=== PATIENT | female | born 1975 | race Caucasian/White ===

== ENCOUNTER 2017-09-16 11:30 | Emergency (ER) | END 2017-09-16 16:36 | disposition home or self-care (01) ==

== ENCOUNTER 2017-09-18 08:10 | Emergency (ER) | END 2017-09-18 12:23 | disposition home or self-care (01) ==

== ENCOUNTER 2017-09-29 07:58 | Emergency (ER) | END 2017-09-29 16:20 | disposition home or self-care (01) ==

== ENCOUNTER 2018-11-02 07:23 | Emergency (ER) | payer MEDICAID ==
[~2018-11-02] VITALS: Ht 167.6 cm; Wt 83.0 kg
[~2018-11-02 07:23] MED LIST: METR70GE15 VAG
[2018-11-02 07:28] VITALS: BP 129/68; PULSE 108; RESP 20; Ht 167.6 cm; Wt 83.0 kg
[2018-11-02] MEDS ORDERED: CEPH-443 PO (11:30)
[2018-11-02] MEDS ORDERED: ACET500C5 PO (11:30)
--- NOTE | 2018-11-02 11:56 | ERD ---
ER Documentation Chief Complaint Chief Complaint Complains of a vag bleed since today and HPI 43-year-old female presents to the ED complaining of vaginal spotting during . Patient is a A1. Patient states that she is approximately 3- 1/2 months . She states that yesterday she began to feel fevers with chills, along with a mild cough. She did not take any xxer-dlu-ctzgabt medications. Patient states she woke up this morning and after using the restroom noticed a small amount of blood in the toilet. She denies any other vaginal discharge, vaginal pain, continue vaginal bleeding, dysuria, flank pain, pelvic pain or hematuria. She denies any pertinent past medical history. No allergies to medications. She is only currently taking vitamins. ROS All systems reviewed and are negative except as per history of present illness. Medications Home Meds Active Scripts Acetaminophen* (Tylophen*) 500 Mg Capsule, 1 CAP PO Q6H PRN for PAIN AND OR ELEVATED TEMP, #20 CAP Prov:ALINE WILSON PA-C 11/02/18 Cephalexin* (Keflex*) 500 Mg Capsule, 500 MG PO QID for 7 Days, CAP Prov:ALINE WILSON PA-C 11/02/18 Metronidazole* (Metrogel* Vaginal) 0.75% -70 Gram Gel.w.appl, 1 APPFUL VAG BID for 7 Days, TUB Prov:ABRAM CARMICHAEL 09/16/17 Allergies Allergies: Coded Allergies: No Known Allergy (Unverified , 09/29/17) PMhx/Soc History of Surgery: No Anesthesia Reaction: No Hx Neurological Disorder: No Hx Respiratory Disorders: No Hx Cardiac Disorders: No Hx Psychiatric Problems: No Hx Miscellaneous Medical Probl: No Hx Alcohol Use: No Hx Substance Use: No Hx Tobacco Use: No Smoking Status: Never smoker FmHx Family History: No diabetes, No coronary disease Physical Exam Vitals Vital Signs Date Temp Pulse Resp B/P (MAP) Pulse Ox O2 O2 Flow FiO2 Time Delivery Rate 11/02/18 97.5 108 20 129/68 99 07:28 (88) Physical Exam Const: Ztu-mts-eqvxamxis, well-nourished. In no acute distress. Head: Atraumatic, normocephalic Eyes: Normal Conjunctiva without injection. No purulent discharge. ENT: Normal external ear, nose. Moist oropharynx without tonsillar exudates. Non-erythematous pharynx. Uvula midline. No drooling. No trismus. Neck: No cervical midline tenderness. Full range of motion. No meningismus. No cervical lymphadenopathy. No JVD. Resp: Clear to auscultation bilaterally. No wheezing, rhonchi, rales, or crackles. No accessory muscle use. No retractions. Cardio: Regular rate and rhythm. No murmurs, rubs or gallops. Abd: Soft, nontender, non distended. Normal bowel sounds. No palpable masses. No rebound tenderness. No guarding. Negative McBurney's point. Negative psoas sign. Negative obturator sign. Skin: No petechiae or rashes Back: No midline tenderness. No CVA tenderness. Ext: No cyanosis, or edema. Neur: Awake and alert. Normal gait. Normal coordination. Psych: Normal Mood and Affect Result Diagram: 11/02/18 0916 Results 24 hrs Laboratory Tests Test 11/02/18 09:16 White Blood Count 7.7 10^3/ul Red Blood Count 4.25 10^6/ul Hemoglobin 12.0 g/dl Hematocrit 36.3 % Mean Corpuscular Volume 85.4 fl Mean Corpuscular Hemoglobin 28.2 pg Mean Corpuscular Hemoglobin Concent 33.1 g/dl Red Cell Distribution Width 13.4 % Platelet Count 380 10^3/UL Mean Platelet Volume 10.0 fl Immature Granulocytes % 0.700 % Neutrophils % 65.4 % Lymphocytes % 23.6 % Monocytes % 8.5 % Eosinophils % 1.3 % Basophils % 0.5 % Nucleated Red Blood Cells % 0.0 /100WBC Immature Granulocytes # 0.050 10^3/ul Neutrophils # 5.0 10^3/ul Lymphocytes # 1.8 10^3/ul Monocytes # 0.7 10^3/ul Eosinophils # 0.1 10^3/ul Basophils # 0.0 10^3/ul Nucleated Red Blood Cells # 0.0 10^3/ul Urine Color YELLOW Urine Clarity CLOUDY Urine pH 7.0 Urine Specific [place] 1.012 Urine Ketones NEGATIVE mg/dL Urine Nitrite NEGATIVE mg/dL Urine Bilirubin NEGATIVE mg/dL Urine Urobilinogen NEGATIVE mg/dL Urine Leukocyte Esterase NEGATIVE Mane/ul Urine Microscopic RBC 1 /HPF Urine Microscopic WBC 10 /HPF Urine Squamous Epithelial Cells FEW /HPF Urine Amorphous Crystals FEW /HPF Urine Bacteria FEW /HPF Urine Hemoglobin 3+ mg/dL Urine Glucose NEGATIVE mg/dL Urine Total Protein NEGATIVE mg/dl Beta HCG, Quantitative 98000.0 mIU/ml Procedures/MDM This is an otherwise healthy 43-year-old female who presents to the ED complaining of vaginal spotting during . She is approximately 3-1/2 months . An ultrasound, beta-hCG, CBC, type and RH, UA was ordered to evaluate patient. CBC: No evidence of severe infection or anemia Urine: WBCs, positive leukocyte esterase - evidence of UTI Rh: O Positive No indication for Rhogam at this time. beta Hc Ultrasound: IMPRESSION: Single live intrauterine with an estimated gestational age of 13 weeks and 1 day, based on ultrasound measurements. SHERIDAN based on ultrasound measurements is 05/09/19. Patient's bleeding symptoms have stabilized while in the department. She will be discharged with prescription for Keflex and acetaminophen for urinary tract infection. Low suspicion for symptomatic pyelonephritis, anemia, ectopic , sepsis, PID, appendicitis, ovarian torsion, tubo-ovarian abscess, surgical abdomen, or other emergent conditions. Patient was educated that there is a risk for threatened . Patient to follow up with [facility] in 2 days for further evaluation and treatment repeat beta-hCG due to her vaginal spotting. Patient is to return sooner to the ED for any worsening symptoms. Patient's questions were answered. Patient understood and agreed with discharge plan. Departure Diagnosis: Primary Impression: Vaginal bleeding in patient at less than 20 weeks ges... Condition: Stable Patient Instructions: Urinary Tract Infections in Women, After Age 35, Bleeding During Early Referrals: [facility] YOU HAVE RECEIVED A MEDICAL SCREENING EXAM AND THE RESULTS INDICATE THAT YOU DO NOT HAVE A CONDITION THAT REQUIRES URGENT TREATMENT IN THE EMERGENCY DEPARTMENT. FURTHER EVALUATION AND TREATMENT OF YOUR CONDITION CAN WAIT UNTIL YOU ARE SEEN IN YOUR DOCTORS OFFICE WITHIN THE NEXT 1-2 DAYS. IT IS YOUR RESPONSIBILITY TO MAKE AN APPOINTMENT FOR FOLOW-UP CARE. IF YOU HAVE A PRIMARY DOCTOR --you should call your primary doctor and schedule an appointment IF YOU DO NOT HAVE A PRIMARY DOCTOR YOU CAN CALL OUR PHYSICIAN REFERRAL HOTLINE AT IF YOU CAN NOT AFFORD TO SEE A PHYSICIAN YOU CAN CHOSE FROM THE FOLLOWING [facility] CLINICS [facility] [address] [facility] [address] [facility] [address] [facility] [address] [facility] [phone] [facility]. [facility]. [address] [facility]. [facility] YOU HAVE RECEIVED A MEDICAL SCREENING EXAM AND THE RESULTS INDICATE THAT YOU DO NOT HAVE A CONDITION THAT REQUIRES URGENT TREATMENT IN THE EMERGENCY DEPARTMENT. FURTHER EVALUATION AND TREATMENT OF YOUR CONDITION CAN WAIT UNTIL YOU ARE SEEN IN YOUR DOCTORS OFFICE WITHIN THE NEXT 1-2 DAYS. IT IS YOUR RESPONSIBILITY TO MAKE AN APPOINTMENT FOR FOLOW-UP CARE. IF YOU HAVE A PRIMARY DOCTOR --you should call your primary doctor and schedule and appointment IF YOU DO NOT HAVE A PRIMARY DOCTOR YOU CAN CALL OUR PHYSICIAN REFERRAL HOTLINE AT . IF YOU CAN NOT AFFORD TO SEE A PHYSICIAN YOU CAN CHOSE FROM THE FOLLOWING [facility] IN[facility]IONS: [facility] [address] [place] [address] [facility] [address] [place] [address] [facility] [address] [place] [address] [facility] URGENT CARE/SPECIALTIES [employer] [place] [address] [facility] [address] [place], [place] [phone] OFFICE FAX JANNETH SCHWARTZ [address] [place], [place] [phone] [place] [address] [place], [place] [phone] ELLA CAZARES [address] [address] [address] [address] [place] [address] [facility] [address] [place], [place] [phone] [phone] [facility] [id number] - [address] CHRISTOPHER, RIK [address], [facility] [phone] ARREGUIN, PALLAVI [address] [address] [facility]. [address], [facility] [address] [address] HYDE, [place] [address] [place] [address] [facility] Hours: 8:00 am - 5:00 pm Additional Instructions: Llame al obstetrica doctor MAANA y no juliette DOMINIC PARA DENTRO DE 2-3 PALMER.Dgale a la secretaria que nosotros le instruimos hacer esta dominic.Avise o llame si arguelles condicin se empeora antes de la dominic. Regresa aqui si peor o no mejor. ALINE WILSON PA-C Nov 02, 2018 11:56
== END 2018-11-02 11:51 | disposition home or self-care (01) ==
LOC: FTE 07:23
DX: O20.9 Hemorrhage in early pregnancy, unspecified (principal); Z3A.13 13 weeks gestation of pregnancy
CPT/HCPCS: 36415; 76801; 81001; 84702; 85025; 86900; 86901; Z7502

== ENCOUNTER 2018-12-27 00:30 | Emergency (ER) | payer MEDICAID, OTHER ==
[~2018-12-27] VITALS: Ht 165.1 cm; Wt 83.8 kg
[~2018-12-27 00:30] MED LIST changes: +ACET500C5 PO; +CEPH-443 PO
[2018-12-27 00:33] VITALS: Ht 165.1 cm; Wt 83.8 kg
[2018-12-27] MEDS ORDERED: ONDANSETRON (ODT) 4 MG TAB ODT STA (01:34)
--- NOTE | 2018-12-27 01:40 | ERD ---
ER Documentation Chief Complaint Chief Complaint decayed tooth on right lower side; pain x 2 days HPI 43-year-old female, previously healthy, presents the emergency department, complaining of 2 days with worsening of right lower tooth pain. She denies fever, no chills, no difficulty swallowing, no difficulty breathing. No medications taken at this time for pain. ROS All systems reviewed and are negative except as per history of present illness. Medications Home Meds Active Scripts Hydrocodone/Acetaminophen ([place] 5-325 Tablet) 1 Each Tablet, 1 TAB PO TID PRN for PAIN, #12 TAB Prov:JULIO AL MD 12/27/18 Ibuprofen* (Motrin*) 600 Mg Tab, 600 MG PO TID PRN for PAIN AND OR ELEVATED TEMP, #30 TAB Prov:JULIO AL MD 12/27/18 Amoxicillin* (Amoxicillin*) 500 Mg Cap, 500 MG PO TID for 10 Days, CAP Prov:JULIO AL MD 12/27/18 Acetaminophen* (Tylophen*) 500 Mg Capsule, 1 CAP PO Q6H PRN for PAIN AND OR ELEVATED TEMP, #20 CAP Prov:ALINE WILSON PA-C 11/02/18 Cephalexin* (Keflex*) 500 Mg Capsule, 500 MG PO QID for 7 Days, CAP Prov:ALINE WILSON PA-C 11/02/18 Metronidazole* (Metrogel* Vaginal) 0.75% -70 Gram Gel.w.appl, 1 APPFUL VAG BID for 7 Days, TUB Prov:ABRAM CARMICHAEL 09/16/17 Allergies Allergies: Coded Allergies: No Known Allergy (Unverified , 09/29/17) PMhx/Soc Medical and Surgical Hx: pt denies Medical Hx, pt denies Surgical Hx History of Surgery: No Anesthesia Reaction: No Hx Neurological Disorder: No Hx Respiratory Disorders: No Hx Cardiac Disorders: No Hx Psychiatric Problems: No Hx Miscellaneous Medical Probl: No Hx Alcohol Use: No Hx Substance Use: No Hx Tobacco Use: No Smoking Status: Never smoker FmHx Family History: No diabetes, No coronary disease Physical Exam Vitals Vital Signs Date Temp Pulse Resp B/P (MAP) Pulse Ox O2 O2 Flow FiO2 Time Delivery Rate 12/27/18 98.6 98 22 140/80 98 00:33 (100) Physical Exam Const: No acute distress Head: Atraumatic Eyes: Normal Conjunctiva ENT: Poor oral dentition, multiple cavities, no evidence of abscess formation. Normal External Ears. Neck: Full range of motion. No meningismus. Resp: Clear to auscultation bilaterally Cardio: Regular rate and rhythm, no murmurs Abd: Soft, non tender, non distended. Normal bowel sounds Skin: No petechiae or rashes Back: No midline or flank tenderness Ext: No cyanosis, or edema Neur: Awake and alert Psych: Normal Mood and Affect Results 24 hrs Current Medications Medications Dose Sig/Jame Start Time Status Last (Trade) Ordered Route PRN Stop Time Admin Dose Reason Admin Ibuprofen 600 mg ONCE ONCE 12/27/18 DC (Motrin) PO 02:00 12/27/18 02:00 1 tab ONCE ONCE 12/27/18 DC 12/27/18 Acetaminophen PO 02:00 12/27/18 01:46 / 02:00 Hydrocodone Bitart ([place] (5/325)) Ondansetron 8 mg ONCE STAT 12/27/18 DC 12/27/18 HCl (Zofran ODT 01:34 12/27/18 01:44 Odt) 01:35 Procedures/MDM Differential diagnosis include but not limited to: Dental abscess, parotitis, sialoadenitis, lymphadenopathy, facial abscess. Low suspicion for systemic infection. Physical examination and clinical presentation consistent most likely with dental infection. During the ED course the patient remained stable, no new complaints. The patient is stable to be treated outpatient and will be discharged home. Some side effects of prescribed medications (headache, rash, nausea, vomiting, diarrhea, drowsiness, habituation, bleeding, hypertension, interactions with other medications) were reviewed. The patient was instructed to follow up with the primary care provider and dentist in the next 48h. If symptoms persist, worsen or new symptoms develop, then patient should return to the ED immediately. Instructions explained and given directly by me to the patient in Greek with acknowledgment and demonstrated understanding. Disclaimer: Inadvertent spelling and grammatical errors are likely due to EHR/dictation software use and do not reflect on the overall quality of patient care. Also, please note that the electronic time recorded on this note does not necessarily reflect the actual time of the patient encounter. Departure Diagnosis: Primary Impression: Tooth disease Condition: Stable Additional Instructions: Muchas evon por [facility] para arguelles servicio. Esperamos que en arguelles visita a la michelle de emergencia arguelles problema medico haya sido solucionado y que se sienta mucho mejor. Para estar seguros que arguelles mejoria sigue en proceso, le pedimos el favor de hacer juliette christine de seguimiento medico con arguelles doctor primario en los proximos 2-4 sams. Lleve con usted estos documentos y las medicinas recetadas. Si dyane sintomas empeoran, NO SE ESPERE, por favor regrese a michelle de emergencia INMEDIATAMENTE. En teresita que usted no tenga un mdico de atencin primaria: Llame al mdico o clnica comunitaria de referencia que aparece abajo fannie las horas de consultorio para hacer juliette christine para que le vean. CLINICAS: [facility] [phone] [facility] [phone] [facility] [phone] [facility] [phone] [place] [phone] [facility]. [phone] JULIO CASTELLANO MD Dec 27, 2018 01:40
[2018-12-27] MEDS ORDERED: AMOX500C2 PO (01:41)
[2018-12-27] MEDS ORDERED: IBUP-1542 PO (01:41)
[2018-12-27] MEDS ORDERED: HYDR-4011 PO (01:42)
[2018-12-27] MEDS ORDERED: HYDROCODONE/APAP (5/325) TAB PO ONE (02:00)
[2018-12-27] MEDS ORDERED: IBUPROFEN 600 MG TAB PO ONE (02:00)
== END 2018-12-27 01:51 | disposition home or self-care (01) ==
LOC: FTE 00:30
DX: K08.89 Other specified disorders of teeth and supporting structures (principal)
CPT/HCPCS: Z7502; Z7610; 99283

== ENCOUNTER 2019-03-01 11:08 | Outpatient (CLI) | payer MEDICAID ==
[~2019-03-01] VITALS: Ht 154.9 cm; Wt 82.7 kg
[~2019-03-01 11:08] MED LIST changes: +AMOX500C2 PO; +HYDR-4011 PO; +IBUP-1542 PO; +PREN-99 PO
[2019-03-01 11:18] VITALS: BP 120/79; PULSE 88; Ht 154.9 cm; Wt 82.7 kg
[2019-03-01] MEDS ORDERED: ACETAMINOPHEN 1000MG/100ML IV 100 ML IVPB ONE (11:45)
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
== END 2019-03-01 18:04 | disposition home or self-care (01) ==
LOC: L-D 11:08 → OBT 11:08
PROVIDERS: ATTEND Obstetrics & Gynecology
DX: O26.893 Other specified pregnancy related conditions, third trimester (principal); R07.89 Other chest pain; Z3A.30 30 weeks gestation of pregnancy
CPT/HCPCS: 76816; 76818; 81001; 85025; 85384; 85460; 86850; 86900; 86901; 96360; 96361; J0131; Z7500; G0463

== ENCOUNTER 2019-03-01 18:15 | Emergency (ER) | payer MEDICAID ==
[~2019-03-01] VITALS: Ht 154.9 cm; Wt 82.2 kg
[2019-03-01 18:32] VITALS: Ht 154.9 cm; Wt 82.2 kg
[2019-03-01] MEDS ORDERED: ACETAMINOPHEN 500 MG TAB PO STA (19:08)
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
[2019-03-01 20:00] VITALS: BP 113/75; PULSE 97; RESP 18
== END 2019-03-01 20:01 | disposition home or self-care (01) ==
LOC: FTE 18:15
DX: O9A.213 Injury, poisoning and certain other consequences of external causes complicating pregnancy, third trimester (principal); S20.211A Contusion of right front wall of thorax, initial encounter; M25.511 Pain in right shoulder; O23.43 Unspecified infection of urinary tract in pregnancy, third trimester; V86.39XA Unspecified occupant of other special all-terrain or other off-road motor vehicle injured in traffic accident, initial encounter; Z3A.32 32 weeks gestation of pregnancy
CPT/HCPCS: Z7502; Z7610; 99283

== ENCOUNTER 2019-03-30 20:13 | Outpatient (CLI) | payer MEDICAID ==
[~2019-03-30] VITALS: Ht 160 cm; Wt 87.1 kg
[~2019-03-30 20:13] MED LIST changes: -AMOX500C2 PO; +CALC600T24 PO; -HYDR-4011 PO; -IBUP-1542 PO; -METR70GE15 VAG
[2019-03-30 21:01] VITALS: BP 135/76; PULSE 73; RESP 18
== END 2019-03-30 23:29 | disposition home or self-care (01) ==
LOC: OBT 20:13 → L-D 20:15 → OBT 23:29
PROVIDERS: ATTEND Obstetrics & Gynecology
DX: O09.529 Supervision of elderly multigravida, unspecified trimester (principal); Z3A.00 Weeks of gestation of pregnancy not specified
CPT/HCPCS: 76815; 76818; 81001; 84112; 87086; G0463